=== PATIENT | female | born 1995 | race Native Hawaiian/Other Pacific Islander ===

== ENCOUNTER 2018-09-23 08:14 | Emergency (ER) | payer OTHER ==
[~2018-09-23] VITALS: Ht 160 cm; Wt 45.4 kg
[2018-09-23 08:28] VITALS: BP 124/68; TEMP 98.1
== END 2018-09-23 08:42 | disposition home or self-care (01) ==
LOC: ED 08:14
DX: N89.8 Other specified noninflammatory disorders of vagina (principal)
CPT/HCPCS: 99281

== ENCOUNTER 2018-12-28 23:04 | Emergency (ER) | payer OTHER ==
[~2018-12-28] VITALS: Ht 160 cm; Wt 45.4 kg
[2018-12-29 02:28] VITALS: BP 123/80; TEMP 98.6
== END 2018-12-29 02:39 | disposition home or self-care (01) ==
LOC: ED 23:04
DX: S70.02XA Contusion of left hip, initial encounter (principal); W01.198A Fall on same level from slipping, tripping and stumbling with subsequent striking against other object, initial encounter
CPT/HCPCS: 96374; 99284; J1885

== ENCOUNTER 2021-09-25 13:13 | Emergency (ER) | payer OTHER ==
[~2021-09-25] VITALS: Ht 160 cm; Wt 48.1 kg
[2021-09-25 13:51] LABS: PLATELET COUNT 204 K/uL (152-353)
[2021-09-25 14:01] LABS: POTASSIUM 3.8 mmol/L (3.6-5.2)
[2021-09-25 15:15] VITALS: BP 122/68
== END 2021-09-25 15:20 | disposition home or self-care (01) ==
LOC: ED 13:13
PROVIDERS: Hospitalist
DX: R25.2 Cramp and spasm (principal); R11.2 Nausea with vomiting, unspecified
CPT/HCPCS: 36415; 80053; 80307; 80320; 81000; 83690; 83735; 85027; 96360; 96375; 99284; J2405

== ENCOUNTER 2022-09-03 17:13 | Emergency (ER) | payer OTHER ==
[~2022-09-03] VITALS: Ht 160 cm; Wt 49.9 kg
[2022-09-03 17:16] VITALS: TEMP 98.6
[2022-09-03 19:38] VITALS: BP 110/62
== END 2022-09-03 19:38 | disposition home or self-care (01) ==
LOC: ED 17:13
DX: S00.03XA Contusion of scalp, initial encounter (principal); S13.8XXA Sprain of joints and ligaments of other parts of neck, initial encounter; W01.190A Fall on same level from slipping, tripping and stumbling with subsequent striking against furniture, initial encounter; Y92.098 Other place in other non-institutional residence as the place of occurrence of the external cause
CPT/HCPCS: 96372; 99283; J1885

== ENCOUNTER 2022-11-06 15:53 | Emergency (ER) | payer OTHER ==
[~2022-11-06] VITALS: Ht 160 cm; Wt 45.4 kg
[2022-11-06 15:59] VITALS: BP 131/73; TEMP 98.5
[2022-11-06 16:44] LABS: POTASSIUM 3.7 mmol/L (3.6-5.2)
[2022-11-06 16:45] LABS: PLATELET COUNT 160 K/uL (152-353)
== END 2022-11-06 18:55 | disposition home or self-care (01) ==
LOC: ED 15:53
PROVIDERS: Emergency Medicine Emergency Medical Services
DX: K52.89 Other specified noninfective gastroenteritis and colitis (principal)
CPT/HCPCS: 80053; 80307; 81002; 82150; 83690; 83735; 85027; 96360; 96361; 96375; 99283; 99284; J1885; J2270; J2405; J3490

== ENCOUNTER 2022-11-12 18:38 | Emergency (ER) | payer OTHER ==
[~2022-11-12] VITALS: Ht 160 cm; Wt 45.4 kg
[2022-11-12 20:49] LABS: PLATELET COUNT 198 K/uL (152-353)
[2022-11-12 20:51] LABS: POTASSIUM 3.6 mmol/L (3.6-5.2)
[2022-11-13 01:00] VITALS: BP 98/57; TEMP 98
== END 2022-11-13 01:00 | disposition home or self-care (01) ==
LOC: ED 18:38
PROVIDERS: Emergency Medicine
DX: R33.8 Other retention of urine (principal)
CPT/HCPCS: 36415; 80053; 80307; 81002; 83690; 85027; 96361; 96374; 96375; 96376; 99284; J1885; J2405